=== PATIENT | female | born 1975 | race Caucasian/White ===

== ENCOUNTER → 2016-10-02 | Outpatient (CLI) | payer OTHER ==
[~2016-10-02] MED LIST: CIPR-255 PO; CLB100 PO; LORA10TA51 PO; SUMA20SP; VENL150C56 PO
== END | disposition home or self-care (01) ==
LOC: C.PATHSPEC 17:03
PROVIDERS: ATTEND Nurse Practitioner Adult Health
DX: R31.0 Gross hematuria (principal)

== ENCOUNTER → 2016-10-31 | Outpatient (CLI) | payer OTHER ==
[~2016-10-31] MED LIST changes: +OPTIRAY 300 IV PRN
--- NOTE | 2016-10-31 14:21 | DIAGNOSTIC IMAGING REPORT ---
IVP CLINICAL HISTORY: Gross hematuria. Recurrent urinary tract infection. COMPARISON STUDY: No previous studies for comparison. TECHNIQUE: Initially, document reviewer KUB was obtained. Intravenous pyelogram was then performed following intravenous injection of 100 cc of Optiray 320 IV. 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 Both nephrograms are symmetric. There is no hydronephrosis or hydroureter. No urinary calculi are identified on this examination. No upper tract filling defects are identified to suggest a urothelial lesion. Bladder is suboptimally assessed utilizing this technique. There is no significant post void residual. Cholecystectomy clips are noted. IMPRESSION: Unremarkable IVP. Electronically signed by: Jamari Price M.D. 10/31/2016 2:20 PM Dictated Date/Time: 10/31/2016 2:17 PM
== END | disposition home or self-care (01) ==
LOC: C.RAD 12:53
PROVIDERS: ATTEND Nurse Practitioner Adult Health
DX: N39.0 Urinary tract infection, site not specified (principal); R31.0 Gross hematuria